=== PATIENT | female | born 1950 | race Caucasian/White ===

== ENCOUNTER 2017-08-02 09:37 | Observation (INO) | payer MEDICARE, OTHER ==
[~2017-08-02] VITALS: Ht 167.6 cm; Wt 89.7 kg
[~2017-08-02 09:37] MED LIST: DICL50TA3 PO; HYDR-3533 PO
[2017-08-02 09:38] VITALS: BP 116/60; PULSE 86; RESP 13; TEMP 99.6; O2SAT 99
[2017-08-02] MEDS ORDERED: IOHEXOL 350 MG/ML 10 ML VIAL (for RAD DIAG) IVCONTRAST ONE (09:38)
[2017-08-02] MEDS ORDERED: SODIUM CHLOR 0.9% 1000 ML INJ 1,000 ML IV SCH (09:58)
[2017-08-02] MEDS ORDERED: ONDANSETRON HCL 4 MG/2 ML VIAL IVP ONE (10:00)
[2017-08-02] MEDS ORDERED: MORPHINE SULFATE 4 MG/ML INJ IV PUSH ONE (10:00)
[2017-08-02] MEDS ORDERED: SODIUM CHLORIDE 0.9% FLUSH 10 ML FLUSH IV FLUSH PRN ×2 (10:00→15:15)
--- NOTE | 2017-08-02 10:03 | PD ---
HPI . Right lower quadrant pain Chief Complaint: GI Complaint Time Seen by Provider: 09:50 Travel History International Travel<30 days: No Contact w/Intl Traveler<30days: No Traveled to known affect area: No History of Present Illness HPI This patient presents with the chief complaint of right lower quadrant abdominal pain. Onset was last night. She describes the pain as constant and sharp and rates it 9/10. Pain is exacerbated by movement. No relieving factor. Associated nausea but no vomiting or diarrhea. No fever. She has a 30+ year history of chronic abdominal pain. However, she states that today's pain is different. PFSH Past Medical History Diminished Hearing: No Gastrointestinal Disorders: Yes ("STOMACH ISSUES") Menopausal: Yes Past Surgical History Tonsillectomy: Yes Social History Alcohol Use: Yes Tobacco Use: No Substance Use: No Allergies-Medications (Allergen,Severity, Reaction): Coded Allergies: No Known Allergies (Verified , 08/05/15) Reported Meds & Prescriptions Reported Meds & Active Scripts Active Diclofenac Sodium 50 Mg Tab 50 Mg PO BID Lortab 5 mg/325 mg (Hydrocodone/Acetaminophen 5 mg/325 mg) 1 Tab 1 Tab PO Q6HR PRN Review of Systems Except as stated in HPI: all other systems reviewed are Neg General / Constitutional: No: Fever, Chills Cardiovascular: No: Chest Pain or Discomfort Respiratory: No: Shortness of Breath Gastrointestinal: Positive: Nausea, Abdominal Pain, No: Vomiting, Diarrhea Genitourinary: No: Urgency, Frequency, Dysuria Physical Exam Narrative GENERAL: Patient is awake and alert. SKIN: warm/dry. No rash. HEAD: Normocephalic. Atraumatic. EYES: Pupils equal and round. No scleral icterus. No injection or drainage. ENT: No nasal bleeding or discharge. Mucous membranes pink and moist. NECK: Trachea midline. Full range of motion without pain.. CARDIOVASCULAR: Regular rate and rhythm. Heart sounds are normal. RESPIRATORY: No accessory muscle use. Clear to auscultation. Breath sounds equal bilaterally. GASTROINTESTINAL: Abdomen soft. Diffuse tenderness with maximal tenderness in the right lower quadrant. Bowel sounds present. Nondistended. No CVA tenderness. MUSCULOSKELETAL: No obvious deformities. NEUROLOGICAL: Awake and alert. No obvious cranial nerve deficits. Motor grossly within normal limits. Normal speech. PSYCHIATRIC: Appropriate mood and affect; insight and judgment normal. Data Data Last Documented VS Vital Signs Date Time Temp Pulse Resp B/P (MAP) Pulse Ox O2 Delivery O2 Flow Rate FiO2 08/02/17 11:21 97 16 133/69 (90) 94 Room Air 08/02/17 09:38 99.6 Orders Orders Complete Blood Count With Diff (08/02/17 09:58) Comprehensive Metabolic Panel (08/02/17 09:58) Lactic Acid (08/02/17 09:58) Urinalysis - C+S If Indicated (08/02/17 09:58) Ct Abd/Pel W Iv Contrast(Rout) (08/02/17 09:58) Iv Access Insert/Monitor (08/02/17 09:58) Morphine Inj (Morphine Inj) (08/02/17 10:00) Ondansetron Inj (Zofran Inj) (08/02/17 10:00) Sodium Chlor 0.9% 1000 Ml Inj (Ns 1000 M (08/02/17 09:58) Sodium Chloride 0.9% Flush (Ns Flush) (08/02/17 10:00) Sodium Chlor 0.9% 1000 Ml Inj (Ns 1000 M (08/02/17 11:00) Iohexol 350 Inj (Omnipaque 350 Inj) (08/02/17 09:38) Piperacil-Tazo 3.375 Gm Premix (Zosyn 3. (08/02/17 12:30) Labs Laboratory Tests Test 08/02/17 10:05 08/02/17 10:10 White Blood Count 12.0 TH/MM3 Red Blood Count 4.42 MIL/MM3 Hemoglobin 12.2 GM/DL Hematocrit 38.3 % Mean Corpuscular Volume 86.6 FL Mean Corpuscular Hemoglobin 27.6 PG Mean Corpuscular Hemoglobin Concent 31.9 % Red Cell Distribution Width 16.7 % Platelet Count 256 TH/MM3 Mean Platelet Volume 6.8 FL Neutrophils (%) (Auto) 87.4 % Lymphocytes (%) (Auto) 7.8 % Monocytes (%) (Auto) 4.5 % Eosinophils (%) (Auto) 0.1 % Basophils (%) (Auto) 0.2 % Neutrophils # (Auto) 10.5 TH/MM3 Lymphocytes # (Auto) 0.9 TH/MM3 Monocytes # (Auto) 0.5 TH/MM3 Eosinophils # (Auto) 0.0 TH/MM3 Basophils # (Auto) 0.0 TH/MM3 CBC Comment DIFF FINAL Differential Comment Blood Urea Nitrogen 11 MG/DL Creatinine 0.81 MG/DL Random Glucose 115 MG/DL Total Protein 7.9 GM/DL Albumin 3.6 GM/DL Calcium Level 8.9 MG/DL Alkaline Phosphatase 92 U/L Aspartate Amino Transf (AST/SGOT) 11 U/L Alanine Aminotransferase (ALT/SGPT) 16 U/L Total Bilirubin 1.4 MG/DL Sodium Level 137 MEQ/L Potassium Level 4.0 MEQ/L Chloride Level 105 MEQ/L Carbon Dioxide Level 25.1 MEQ/L Anion Gap 7 MEQ/L Estimat Glomerular Filtration Rate 71 ML/MIN Lactic Acid Level 2.2 mmol/L Urine Color YELLOW Urine Turbidity CLEAR Urine pH 6.0 Urine Specific [place] 1.026 Urine Protein TRACE mg/dL Urine Glucose (UA) NEG mg/dL Urine Ketones NEG mg/dL Urine Occult Blood SMALL Urine Nitrite NEG Urine Bilirubin NEG Urine Urobilinogen LESS THAN 2.0 MG/DL Urine Leukocyte Esterase NEG Urine RBC 3 /hpf Urine WBC 1 /hpf Urine Squamous Epithelial Cells 1 /hpf Urine Mucus FEW /lpf Microscopic Urinalysis Comment CULT NOT INDICATED MDM Medical Decision Making Medical Screen Exam Complete: Yes Emergency Medical Condition: Yes Medical Record Reviewed: Yes (past medical history significant for chronic abdominal pain.) Differential Diagnosis Differential diagnosis of abdominal pain includes but is not limited to gastritis, pancreatitis, hepatitis, gastroenteritis, gallbladder disease, constipation, urinary retention, UTI, peptic ulcer disease, diverticulitis or appendicitis Narrative Course This patient presents with right lower quadrant abdominal pain which started last night. She is tender in the right lower quadrant. She will be evaluated for possible appendicitis. CBC & BMP Diagram 08/02/17 10:05 Total Protein 7.9, Albumin 3.6, Calcium Level 8.9, Alkaline Phosphatase 92, Aspartate Amino Transf (AST/SGOT) 11 L, Alanine Aminotransferase (ALT/SGPT) 16, Total Bilirubin 1.4 H LA 2.2 Last Impressions Abdomen/Pelvis CT 08/02/17 0842 Signed Impressions: Service Date/Time: Wednesday, August 02, 2017 11:49 - CONCLUSION: Findings consistent with acute appendicitis. Nathan Gross MD Physician Communication Physician Communication Dr. Crawford will see the patient shortly Diagnosis Primary Impression: Abdominal pain Qualified Codes: R10.31 - Right lower quadrant pain Admitting Information Admitting Physician Requests: Observation Condition: Stable Sabrina Harman MD Aug 02, 2017 10:03
[2017-08-02 10:30] VITALS: BP 126/70; PULSE 92; RESP 16; O2SAT 96
[2017-08-02 10:30] LABS: AUTOMATED NEUTROPHIL # 10.5 TH/MM3 (1.8-7.7); BASOPHIL % 0.2 % (0.0-2.0); EOSINOPHIL % 0.1 % (0.0-4.0); HEMATOCRIT 38.3 % (35.0-46.0); HEMO FLAGS DIFF FINAL; LYMPH % 7.8 % (9.0-44.0); LYMPHOCYTE # 0.9 TH/MM3 (1.0-4.8); MEAN CELL VOLUME 86.6 FL (80.0-100.0); MEAN CORPUSCULAR HEMOGLOBIN 27.6 PG (27.0-34.0); MEAN CORPUSCULAR HGB CONC 31.9 % (32.0-36.0); MONO % 4.5 % (0.0-8.0); NEUT % 87.4 % (16.0-70.0); PLATELET COUNT 256 TH/MM3 (150-450); RED BLOOD COUNT 4.42 MIL/MM3 (4.00-5.30); RED CELL DISTRIBUTION WIDTH 16.7 % (11.6-17.2)
[2017-08-02 10:47] LABS: BLOOD, URINE SMALL (NEG); COMMENT (UR) CULT NOT INDICATED; CULTURE IF INDICATED CULT NOT INDICATED; GLUCOSE,URINE NEG (NEG); KETONE, URINE NEG (NEG); MUCUS URINE FEW /lpf (OCC); NITRITE,URINE NEG (NEG); SQUAMOUS EPITHELIAL CELL URINE 1 /hpf (0-5); URINE COLOR YELLOW (YELLW/STRAW)
[2017-08-02 10:52] LABS: ALT (GPT) 16 U/L (10-53); ANION GAP 7 MEQ/L (5-15); AST (GOT) 11 U/L (15-37); BICARBONATE 25.1 MEQ/L (21.0-32.0); BLOOD UREA NITROGEN 11 MG/DL (7-18); CHLORIDE 105 MEQ/L (98-107); GLOMERULAR FILTRATION RATE 71 ML/MIN (>89); SODIUM (NA) 137 MEQ/L (136-145)
[2017-08-02 10:55] LABS: ALKALINE PHOSPHATASE 92 U/L (45-117); TOTAL BILIRUBIN ADULT 1.4 MG/DL (0.2-1.0)
[2017-08-02] MEDS ORDERED: SODIUM CHLOR 0.9% 1000 ML INJ 1,000 ML IV ONE (11:00)
[2017-08-02 11:21] VITALS: BP 133/69; PULSE 97; RESP 16; O2SAT 94
[2017-08-02] MEDS ORDERED: GLYCOPYRROLATE 0.2 MG/ML VIAL IV ONE (12:00)
[2017-08-02] MEDS ORDERED: LIDOCAINE HCL 1% PF 5 ML AMPULE OTHER ONE (12:00)
[2017-08-02] MEDS ORDERED: DEXAMETHASONE SOD PHOS 4 MG/ML VIAL IV ONE (12:00)
[2017-08-02] MEDS ORDERED: LACTATED RINGER'S 1000 ML INJ 1,000 ML IV ONE (12:00)
[2017-08-02] MEDS ORDERED: PHENYLEPH/NS 1000 MCG/10 ML SYR IV ONE (12:00)
[2017-08-02] MEDS ORDERED: ePHEDrine/NS 25 MG/5 ML SYR IV ONE (12:00)
[2017-08-02] MEDS ORDERED: ONDANSETRON HCL 4 MG/2 ML VIAL IV PUSH ONE (12:00)
[2017-08-02] MEDS ORDERED: MIDAZOLAM HCL 2 MG/2 ML VIAL IV ONE (12:00)
[2017-08-02] MEDS ORDERED: ROCURONIUM INJ 50 MG/5 ML SYRINGE IV PUSH ONE (12:00)
[2017-08-02] MEDS ORDERED: METOPROLOL TARTRATE 5 MG/5 ML VIAL IV PUSH ONE (12:00)
[2017-08-02] MEDS ORDERED: NEOSTIGMINE 3 MG/3 ML SYR IV ONE (12:00)
--- NOTE | 2017-08-02 12:18 | RADRPT ---
EXAM DATE/TIME: 08/02/2017 11:49 [facility] COMPARISON: CT ABDOMEN & PELVIS W CONTRAST, December 08, 2014, 11:05. US ABDOMEN - GALLBLADDER, December 08, 2014, 9:28. INDICATIONS : Right lower quadrant pain, nausea. IV CONTRAST: 96 cc Omnipaque 350 (iohexol) IV ORAL CONTRAST: No oral contrast ingested. RADIATION DOSE: 9.96 CTDIvol (mGy) MEDICAL HISTORY : None SURGICAL HISTORY : None. ENCOUNTER: Initial ACUITY: 1 day PAIN SCALE: 7/10 LOCATION: Right lower quadrant TECHNIQUE: Volumetric scanning of the abdomen and pelvis was performed. Using automated exposure control and ad justment of the mA and/or kV according to patient size, radiation dose was kept as low as reasonably achievable to obtain optimal diagnostic quality images. DICOM format image data is available electro nically for review and comparison. FINDINGS: LOWER LUNGS: The visualized lower lungs are clear. LIVER: Homogeneous density without lesion. There is no dilation of the biliary tree. No calcified gallston es. Gallbladder seen as a luminal structure without wall thickening SPLEEN: Normal size without lesion. PANCREAS: Within normal limits. KIDNEYS: Normal in size and shape. There is no, stone or hydronephrosis. Stable 2.6 cm cyst posterior cortex mid to upper pole of the left kidney ADRENAL GLANDS: Within normal limits. VASCULAR: There is no aortic aneurysm. BOWEL/MESENTERY: Uncomplicated diverticuli of the colon predominately in the sigmoid region. The appendix is dilated a t 1.5 cm and there is infiltrative inflammatory change in the retrocecal periappendiceal fat planes w ith no evidence of free air or free fluid or organized abscess. ABDOMINAL WALL: Within normal limits. RETROPERITONEUM: There is no lymphadenopathy. BLADDER: No wall thickening or mass. REPRODUCTIVE: Within normal limits. INGUINAL: There is no lymphadenopathy or hernia. MUSCULOSKELETAL: Within normal limits for patient age. CONCLUSION: Findings consistent with acute appendicitis. Nathan Gross MD on August 02, 2017 at 12:12 Board Certified Radiologist. This report was verified electronically.
[2017-08-02] MEDS ORDERED: PIPERACIL-TAZO 3.375 GM PREMIX 50 ML IV ONE (12:30)
[2017-08-02] MEDS ORDERED: BUPIVACAINE/EPINEPHRINE 0.25% 50 ML VIAL ONE (13:06)
[2017-08-02 13:11] VITALS: BP 132/63; PULSE 92; RESP 16; O2SAT 94
[2017-08-02] MEDS ORDERED: ACETAMINOPHEN 1000 MG/100 ML 100 ML IV ONE (14:36)
[2017-08-02] MEDS ORDERED: oxyCODONE/ACETAMINOPHEN 5 MG/325 MG TAB PO PRN (15:15)
[2017-08-02] MEDS ORDERED: oxyCODONE/ACETAMINOPHEN 10 MG/325 MG TAB PO PRN (15:15)
[2017-08-02] MEDS ORDERED: diphenhydrAMINE HCL 25 MG CAP PO PRN (15:15)
[2017-08-02] MEDS ORDERED: ONDANSETRON HCL 4 MG/2 ML VIAL IV PRN (15:15)
[2017-08-02] MEDS ORDERED: NALOXONE HCL 0.4 MG/ML AMP IV PUSH PRN (15:15)
[2017-08-02] MEDS ORDERED: Post-op Orders (for Pharmacy) MISC XX ONE (15:15)
[2017-08-02] MEDS ORDERED: MORPHINE SULFATE 4 MG/ML INJ IV PUSH PRN (15:15)
--- NOTE | 2017-08-02 15:17 | PD.OP ---
cc: Ganesh Crawford MD Operative Report Date of Surgery: Aug 02, 2017 Preoperative Diagnosis: (1) Acute appendicitis Postoperative Diagnosis: (1) Acute appendicitis Procedure: Laparoscopic appendectomy Anesthesia: GETA Surgeon: Ganesh Crawford Supervisor [employer](s): Rishi VILLARREAL Operation and Findings: EBL: 5 cc Complications: None apparent Operative findings: The appendix was inflamed and gangrenous. There was cloudy fluid in the right lower quadrant and pelvis. Procedure in detail: The patient was taken to the operating room placed in the supine position with left arm tucked. General endotracheal anesthesia was induced and the abdomen was prepped and draped in usual sterile fashion. Surgical timeout was performed to verify correct patient procedure and site. Perioperative antibiotics were administered as necessary. Local anesthetic was injected in the skin and subcutaneous tissue in the left lower abdomen and a 5 mm incision made. Using the 5 mm Optiview trocar with laparoscope the abdomen was directly entered. The abdomen was then insufflated to 15 mmHg with CO2 gas which the patient tolerated well. The patient was then placed in Trendelenburg position and turned slightly to the left. A 5 mm port was placed under laparoscopic visualization of the inferior umbilicus and a 12 mm port in the suprapubic area. Attention was turned to the right lower quadrant and the appendix was inflamed and gangrenous with cloudy and exudative fluid in the right lower quadrant. The mesoappendix was taken down with the Harmonic scalpel. Two #1 PDS Endoloops were placed at the base the appendix and the appendix transected with Harmonic scalpel. It was then removed using an Endo Catch bag. The appendiceal stump was intact with no leakage. The right lower quadrant and pelvis were copiously irrigated until there was only clear fluid remaining. The abdomen was allowed to desufflate. The fascia at the 12 mm port site was closed with a single 0 Vicryl suture. Skin closed with subcuticular Monocryl as well as Dermabond. The patient tolerated the procedure well was extubated and taken to PACU in stable condition. Ganesh Crawford MD Aug 02, 2017 15:17
--- NOTE | 2017-08-02 15:20 | HHI.HP ---
HPI Service General surgery Primary Care Physician No Primary Care Physician Admission Diagnosis appendicitis Chief Complaint: Abdominal pain History of Present Illness The patient is a 67-year-old female with a long-term history of chronic abdominal pain who presents with acute onset of severe right lower quadrant abdominal pain which began yesterday during the day. She had nausea but no vomiting. She was evaluated in the emergency department and noted to have leukocytosis and a CT scan concerning for acute appendicitis. No previous abdominal surgeries. Review of Systems Constitutional: DENIES: Fever, Chills Eyes: DENIES: Eye inflammation, Eye pain Respiratory: DENIES: Cough, Shortness of breath Cardiovascular: DENIES: Chest pain, Palpitations Gastrointestinal: COMPLAINS OF: Abdominal pain, Nausea, DENIES: Vomiting Musculoskeletal: DENIES: Back pain, Neck pain Integumentary: DENIES: Pruritus, Rash Neurologic: DENIES: Paresthesias, Seizures Past Family Social History Past Medical History Chronic abdominal pain Past Surgical History None Reported Medications None Allergies: Coded Allergies: No Known Allergies (Verified , 08/05/15) Active Ordered Medications Current Medications Medications (Trade) Dose Ordered Sig/Abdirashid Route Start Time Stop Time Status Last Admin (NS Flush) 2 ml UNSCH PRN IV FLUSH 08/02/17 10:00 Family History Noncontributory Social History Occasional alcohol use. No tobacco or drug use. Physical Exam Vital Signs Vital Signs Date Time Temp Pulse Resp B/P (MAP) Pulse Ox O2 Delivery O2 Flow Rate FiO2 08/02/17 13:11 92 16 132/63 (86) 94 Room Air 08/02/17 11:21 97 16 133/69 (90) 94 Room Air 08/02/17 10:30 92 16 126/70 (88) 96 Room Air 08/02/17 09:38 99.6 86 13 116/60 (78) 99 Physical Exam GENERAL: Awake and alert. No acute distress. Cooperative. Obese. HEAD: Normocephalic. Atraumatic. EYES: Pupils equal round and reactive to light bilaterally. No scleral icterus. ENT: Moist oral mucosa. NECK: Trachea midline. CHEST: Lungs clear to auscultation bilaterally with no wheezing or rhonchi. No respiratory distress. CARDIOVASCULAR: Regular rate and rhythm. ABDOMEN: Obese. Nondistended. Severe tenderness in the right lower quadrant with positive rebound. EXTREMITIES: No cyanosis or edema. SKIN: Warm, dry, nonjaundiced. Laboratory Laboratory Tests Test 08/02/17 10:05 08/02/17 10:10 White Blood Count 12.0 Red Blood Count 4.42 Hemoglobin 12.2 Hematocrit 38.3 Mean Corpuscular Volume 86.6 Mean Corpuscular Hemoglobin 27.6 Mean Corpuscular Hemoglobin Concent 31.9 Red Cell Distribution Width 16.7 Platelet Count 256 Mean Platelet Volume 6.8 Neutrophils (%) (Auto) 87.4 Lymphocytes (%) (Auto) 7.8 Monocytes (%) (Auto) 4.5 Eosinophils (%) (Auto) 0.1 Basophils (%) (Auto) 0.2 Neutrophils # (Auto) 10.5 Lymphocytes # (Auto) 0.9 Monocytes # (Auto) 0.5 Eosinophils # (Auto) 0.0 Basophils # (Auto) 0.0 CBC Comment DIFF FINAL Differential Comment Blood Urea Nitrogen 11 Creatinine 0.81 Random Glucose 115 Total Protein 7.9 Albumin 3.6 Calcium Level 8.9 Alkaline Phosphatase 92 Aspartate Amino Transf (AST/SGOT) 11 Alanine Aminotransferase (ALT/SGPT) 16 Total Bilirubin 1.4 Sodium Level 137 Potassium Level 4.0 Chloride Level 105 Carbon Dioxide Level 25.1 Anion Gap 7 Estimat Glomerular Filtration Rate 71 Lactic Acid Level 2.2 Urine Color YELLOW Urine Turbidity CLEAR Urine pH 6.0 Urine Specific [place] 1.026 Urine Protein TRACE Urine Glucose (UA) NEG Urine Ketones NEG Urine Occult Blood SMALL Urine Nitrite NEG Urine Bilirubin NEG Urine Urobilinogen LESS THAN 2.0 Urine Leukocyte Esterase NEG Urine RBC 3 Urine WBC 1 Urine Squamous Epithelial Cells 1 Urine Mucus FEW Microscopic Urinalysis Comment CULT NOT INDICATED Result Diagram: 08/02/17 1005 08/02/17 1005 Imaging Last Impressions Abdomen/Pelvis CT 08/02/17 0958 Signed Impressions: Service Date/Time: Wednesday, August 02, 2017 11:49 - CONCLUSION: Findings consistent with acute appendicitis. MD Diane Manzanares VTE Risk Assessment Caprini VTE Risk Assessment: No/Low Risk (score <= 1) Caprini Risk Assessment Model Point Value = 1 Point Value = 2 Point Value = 3 Point Value = 5 Age 41-60 Minor surgery BMI > 25 kg/m2 Swollen legs Varicose veins or History of unexplained or recurrent spontaneous Oral contraceptives or hormone replacement Sepsis (< 1 month) Serious lung disease, including pneumonia (< 1 month) Abnormal pulmonary function Acute myocardial infarction Congestive heart failure (< 1 month) History of inflammatory bowel disease Medical patient at bed rest Age 61-74 Arthroscopic surgery Major open surgery (> 45 min) Laparoscopic surgery (> 45 min) Malignancy Confined to bed (> 72 hours) Immobilizing plaster cast Central venous access Age >= 75 History of VTE Family history of VTE Factor V Leiden Prothrombin [id number] Lupus anticoagulant Anticardiolipin antibodies Elevated serum homocysteine Heparin-induced thrombocytopenia Other congenital or acquired thrombophilia Stroke (< 1 month) Elective arthroplasty Hip, pelvis, or leg fracture Acute spinal cord injury (< 1 month) Prophylaxis Regimen Total Risk Factor Score Risk Level Prophylaxis Regimen 0-1 Low Early ambulation 2 Moderate Order ONE of the following: *Sequential Compression Device (SCD) *Heparin 5000 units SQ BID 3-4 Higher Order ONE of the following medications: *Heparin 5000 units SQ TID *Enoxaparin/Lovenox 40 mg SQ daily (WT < 150 kg, CrCl > 30 mL/min) *Enoxaparin/Lovenox 30 mg SQ daily (WT < 150 kg, CrCl > 10-29 mL/min) *Enoxaparin/Lovenox 30 mg SQ BID (WT < 150 kg, CrCl > 30 mL/min) AND/OR *Sequential Compression Device (SCD) 5 or more Highest Order ONE of the following medications: *Heparin 5000 units SQ TID (Preferred with Epidurals) *Enoxaparin/Lovenox 40 mg SQ daily (WT < 150 kg, CrCl > 30 mL/min) *Enoxaparin/Lovenox 30 mg SQ daily (WT < 150 kg, CrCl > 10-29 mL/min) *Enoxaparin/Lovenox 30 mg SQ BID (WT < 150 kg, CrCl > 30 mL/min) AND *Sequential Compression Device (SCD) Assessment and Plan Assessment and Plan 67-year-old female with a evaluation consistent with acute appendicitis. I recommended to proceed to the operating room for laparoscopic possible open appendectomy. Discussed the benefits and risks and details of the procedure with the patient. She desires to proceed. Ty,Ganesh EMERY Aug 02, 2017 15:20
[2017-08-02] MEDS ORDERED: DO NOT ADM ANY ANTICOAGULANT DRUGS PRN (15:29)
[2017-08-02] MEDS: LACTATED RINGER'S 1000 ML INJ 1,000 ML IV SCH ×2 (16:00→21:16)
[2017-08-02] MEDS: metroNIDAZOLE 500 MG INJ 100 ML IV SCH (17:13)
[2017-08-02 20:00] VITALS: BP 99/54; PULSE 75; RESP 20; TEMP 98.9; O2SAT 94
[2017-08-02] MEDS: SODIUM CHLORIDE 0.9% FLUSH 10 ML FLUSH IV FLUSH SCH (21:00)
[2017-08-02 21:02] VITALS: O2SAT 97
[2017-08-03] VITALS: BP 114/61; PULSE 63; RESP 20; TEMP 97.6; O2SAT 94
[2017-08-03] MEDS: metroNIDAZOLE 500 MG INJ 100 ML IV SCH ×2 (00:25→08:41)
[2017-08-03 04:00] VITALS: BP 104/58; PULSE 63; RESP 20; TEMP 97.3; O2SAT 93
[2017-08-03 08:38] VITALS: O2SAT 97
[2017-08-03 08:41] VITALS: BP 109/63; PULSE 66; RESP 18; TEMP 97.4; O2SAT 96
[2017-08-03] MEDS: LACTATED RINGER'S 1000 ML INJ 1,000 ML IV SCH (08:41)
[2017-08-03] MEDS: SODIUM CHLORIDE 0.9% FLUSH 10 ML FLUSH IV FLUSH SCH (08:41)
[2017-08-03] MEDS ORDERED: OXYC1TAB63 PO (10:10)
--- NOTE | 2017-08-03 10:12 | HHI.PR ---
Subjective Subjective Notes Tolerating diet and ambulating. In some pain but has not had any pain meds since morphine at midnight. Objective Vitals/I&O Vital Signs Date Time Temp Pulse Resp B/P (MAP) Pulse Ox O2 Delivery O2 Flow Rate FiO2 08/03/17 08:41 97.4 66 18 109/63 (78) 96 08/02/17 21:02 21 08/02/17 17:15 Nasal Cannula 2 Radiology Last Impressions Abdomen/Pelvis CT 08/02/17 0958 Signed Impressions: Service Date/Time: Wednesday, August 02, 2017 11:49 - CONCLUSION: Findings consistent with acute appendicitis. Nathan Gross MD Narrative Exam NAD Abd: soft, post op ttp, inc c/d/i A/P Assessment and Plan 67 yo F POD 1 s/p lap appy. Doing well post op. Reg diet. Stable condition. Activity- no heavy lifting. F/ u in two weeks. Rx percocet and augmentin. Ganesh Crawford MD Aug 03, 2017 10:12
[2017-08-03] MEDS ORDERED: AUGM875T3 PO (10:13)
[2017-08-03] MEDS ORDERED: ZOFR4TAB PO (10:14)
[2017-08-03 12:00] VITALS: BP 111/68; PULSE 68; RESP 18; TEMP 97.2; O2SAT 97
--- NOTE | 2017-08-03 16:29 | EKG ---
Date Performed: 08/02/2017 Time Performed: 13:42:56 PTAGE: 67 years EKG: SINUS TACHYCARDIA WITH PACs Poor R wave progression, possible normal variant, cannot rule o ut previous septal CT LOW QRS VOLTAGE IN PRECORDIAL LEADS INFERIOR MYOCARDIAL INFARCTION , PROBABLY O LD Compared to previous tracing, HR is faster. ABNORMAL ECG PREVIOUS TRACING : 07/01/2014 13.12 DOCTOR: Alan Persaud Interpretating Date/Time 08/03/2017 16:28:47
== END 2017-08-03 13:31 | disposition home or self-care (01) ==
LOC: NEPD 09:37 → NEDA 12:28 → N07B 17:42
PROVIDERS: ADMIT Surgery; ATTEND Surgery
DX: K35.80 Unspecified acute appendicitis (principal); R11.0 Nausea; R94.31 Abnormal electrocardiogram [ECG] [EKG]; Z01.810 Encounter for preprocedural cardiovascular examination
CPT/HCPCS: 00840; 44970; 74177; 80053; 81001; 83605; 85025; 88304; 93005; 94150; 96361; 96365; 96366; 96367; 96375; 96376; 99285; G0378; J0131; J0690; J1100; J2250; J2270; J2370; J2405; J2543; J2710; J3010; J7030; J7120; Q9967